=== PATIENT | male | born 1960 | race Caucasian/White ===

== ENCOUNTER 2020-05-16 08:54 | Emergency (ER) | payer MEDICARE, MEDICAID ==
[~2020-05-16] VITALS: Ht 167.6 cm; Wt 86.0 kg
[2020-05-16] MEDS: ACETAMINOPHEN 500 MG TABLET PO ONE ×2 (09:14→11:10)
[2020-05-16] MEDS ORDERED: KETOROLAC TROMETHAMINE 30 MG/ML VIAL IM ONE (09:15)
[2020-05-16] MEDS ORDERED: LIDOCAINE 5% TRANSDERMAL PATCH TD ONE (09:15)
[2020-05-16] MEDS ORDERED: LORazepam 2 MG/ML VIAL IM ONE (09:15)
[2020-05-16] MEDS ORDERED: ALPRAZolam 0.5 MG TABLET PO ONE (10:45)
[2020-05-16] MEDS ORDERED: TraZODone HCL 50 MG TABLET PO ONE (10:45)
[2020-05-16] MEDS ORDERED: ALPRAZolam 1 MG TABLET PO ONE (11:00)
[2020-05-16 13:35] VITALS: BP 177/95
== END 2020-05-16 13:51 | disposition home or self-care (01) ==
LOC: EMS 08:54
DX: F41.9 Anxiety disorder, unspecified (principal)
CPT/HCPCS: 96372; 99284; J1885; J2060